=== PATIENT | female | born 1975 | race Two or more races ===

== ENCOUNTER → 2016-09-10 | Outpatient (CLI) | payer OTHER ==
[~2016-09-10] MED LIST: AMIT24CA PO; ATOR1TAB19 PO; CONC18TA14 PO; DETR4CAP PO; FLUO20CA8 PO; GABA300C2 PO; KEPP500T4 PO; LEVO88TA2 PO; LIPI10TA PO; LISI5TAB PO; MULT1TAB10 PO; PRIL40CA PO; PROZ20CA11 PO; TRAZ100T2 PO; VENL75CA PO; WELLTAB4 PO
--- NOTE | 2016-09-11 01:50 | ECWPNPC ---
PATIENT NAME: NADEEM GARDNER : 1975 GENDER: FEMALE VISIT DATE: 09/10/2016 DISCHARGE DATE: 09/10/16 1428 VISIT LOCKED DATE TIME: PHYSICIAN: ANIKET MALLORY RESOURCE: ANIKET MALLORY REASON FOR APPOINTMENT 1. NECK PAIN HISTORY OF PRESENT ILLNESS FALL RISK SCREENING: SCREENING :NO FALLS IN THE PAST YEAR 40 Y/O FEMALE REFERRED BY FOR CHRONIC NECK PAIN.PAIN BEGAN WITHOUT PRECIPITATING EVENT 2013.DESCRIBES PAIN CONSTANT ACHE BASE OF NECK.PAIN IS AGGREVATED WITH LEFT LATERAL ROTATION OF NECK.RELIEVED SOMEWHAT WITH HEAT AND TYLENOL.RATING PAIN VAS 3/10.DENIES BOWEL OR BLADDER INCONTINENCE.REPORTING WEEKLY WEIGHT LOSS OF 1/2 POUND LATELY.HAD GASTRIC BYPASS 2014.IT WILL BE 2 YEARS POST OP IN NOVEMBER 2016.DL ENCOURAGED HER TO DISCUSS THIS WITH PRIMARY CARE SOON POSSIBLE.DENIES BOWEL OR BLADDER INCONTINENCE. PAIN SCREENING: PATIENT HAS A COMPLAINT OF ACUTE OR CHRONIC PAIN YES CURRENT MEDICATIONS TAKING CONCERTA 18 MG TABLET EXTENDED RELEASE 1 TABLET IN THE MORNING ORALLY ONCE A DAY TAKING MULTI COMPLETE - CAPSULE 1 CAP CHEWABLW ORALLY DAILY TAKING ACETAMINOPHEN EXTRA STRENGTH 500 MG TABLET 1-2 TABLETS NEEDED ORALLY EVERY 6 HRS PRN TAKING IMITREX STATDOSE SYSTEM 4 MG/0.5ML SOLUTION AUTO-INJECTOR 0.5 ML NEEDED SUBCUTANEOUS TWICE A DAY MEDICATION LIST REVIEWED AND RECONCILED WITH THE PATIENT PAST MEDICAL HISTORY HYPERLIPIDEMIA-- RESOLVED SINCE GASTRIC BYPASS HYPERTENION--NO MEDS AT PRESENT NECK PAIN MIGRAINES SEIZURE X2 2012 AND 2013 ATTRIBUTED TO COMBINATION OF WELLBUTRIN AND TRAMADOL CHROINC LBP HYPOTHYROID--NO MEDS AT PRESENT ARTHRITIS ALLERGIES N.K.D.A. SURGICAL HISTORY GASTRIC BYPASS 11/2014 CARPAL TUNNEL REPAIR--BILAT 05/2012 BILAT. ULNA NERVE 12/2010 APPENDECTOMY 06/2010 UMBILICAL HERNIA REPAIR 08/2007 FAMILY HISTORY FATHER: ALIVE 78 YRS, DIAGNOSED WITH DIABETES, HYPERTENSION, HEART DISEASE, CANCER MOTHER: 69 YRS, DIAGNOSED WITH HYPERTENSION, OTHER 3 SON(S) , 1 DAUGHTER(S) - HEALTHY. DAD--SKIN CAMOM--PULMONARY EMBOLISM. SOCIAL HISTORY GENERAL: TOBACCO USE ARE YOU A:NONSMOKER ALCOHOL SCREENING POINTS1 INTERPRETATIONNEGATIVE RECREATIONAL DRUG USE DRUG USE?NO PATIENT DENIES ABUSE OR MISSUSED OF ANY MEDICATION. CAFFEINE CAFFEINE USE?YES HOW OFTEN AND HOW MUCH? 1-3 CUPS COFFEE/DAY OCCUPATION: RETIRED--DUE TO MEDICAL CONDITION. DIET: REGULAR. EXERCISE: NO REGULAR EXERCISE. MARITAL STATUS: . OTHERS AT HOME: SPOUSE, 4 CHILDREN. PETS: DOG AND CAT. DENOMINATIONAL: NO YAZIDISM BELIEFS THAT WOULD IMPACT HEALTH CARE. LANGUAGE: ROMANIAN. EDUCATION: [employer] ORIENTATION TO PAIN CENTER PLAN OF CARE REVIEWED WITH PATIENT AND SHE VERBALIIZED UNDERSTANDING. LEARNING BARRIERS / SPECIAL NEEDS BARRIERS TO LEARNING?NO HEARING IMPAIRED?NO VISION IMPAIRED?YES :CORRECTIVE LENSES COGNITIVELY IMPAIRED?NO READINESS TO LEARN?YES LEARNING PREFERENCES?YES :DEMONSTRATION/VERBAL INSTRUCTION EMOTIONAL BARRIERS?NO MEDICATION ABUSE NO PSYCHOLOGICAL HX TREATMENTYES HOW OFTEN AND HOW MUCH? ONCE A MONTH X 2 YRS. ENDED IN 2014 PAIN CLINIC PFS, CLERGY, PUBLIC HEALTH REFERRALS PFS REFERRAL NEEDED?NO CLERGY REFERRAL NEEDED?NO PUBLIC HEALTH REFERRAL NEEDED?NO ADVANCED DIRECTIVES HEALTH CARE PROXY?NO PACKET GIVEN POWER OF LOCAL DELIVERY DRIVER?NO RETIRED: DUE TO MEDICAL REASON. DOMESTIC VIOLENCE: NONE. HOSPITALIZATION/MAJOR DIAGNOSTIC PROCEDURE SEIZURES 2013 REVIEW OF SYSTEMS CONSTITUTIONAL: RECENT ILLNESS DENIES . ANY CHANGE IN YOUR MEDICAL CONDITION? NO . CHILLS NO . FEVER NO, DENIES . WEIGHT LOSS DENIES . INFECTION: DO YOU HAVE NEW INFECTIONS? NO . DO YOU HAVE HISTORY OF MRSA? NO . MUSCULOSKELETAL: ANY NEW PATTERNS OF PAIN OR NUMBNESS? NO . SYTEMIC LUPUS NO . JOINT PAIN DENIES . JOINT STIFFNESS DENIES . GASTROENTEROLOGY: BOWEL INCONTINENCE DENIES . ANY NEW CHANGE IN BOWEL CONTROL? NO . BARRETTS ESOPHAGUS NO . CIRRHOSIS NO . HEPATITIS NO . LIVER FAILURE NO . ACID REFLUX NO . BLOOD IN STOOL DENIES . UNEXPLAINED WEIGHT LOSS NO . GENITOURINARY: ANY NEW CHANGE IN BLADDER CONTROL? NO . IS THERE A CHANCE YOU COULD BE ? NO . HEMATOLOGY/LYMPH: DENIES . BLEEDING DISORDER DENIES . DO YOU TAKE ANY BLOOD THINNERS? (FOR EXAMPLE- COUMADIN, PLAVIX, AGGRENOX, PLATEL, PRADAXA, OR XARELTO) NO . WHEN WAS YOUR LAST DOSE? DATE: TIME: . LOW PLATELET COUNT NO . SICKLE CELL DISEASE NO . VON WILLIEBRANDS NO . FACTOR V LEIDEN NO . THALLASEMIA NO . ANEMIA NO . EASY BRUISING NO . NEUROLOGY: HAVE YOU FALLEN IN THE PAST 6 MONTHS? NO . ANY NEW EXTREMITY NUMBNESS OR WEAKNESS? NO . HEAD INJURY NO . DEMENTIA NO . CEREBRAL PALSY NO . MULTIPLE SCLEROSIS NO . DIZZINESS NO . HEADACHE MIGRAINES, INTERMITTENT HAS BEEN SEVERAL YEARS SINCE SHE HAS HAD ONE, DENIES . SEIZURES DENIES . STROKES NO . VERTIGO NO . CARDIOLOGY: DO YOU HAVE A PACEMAKER OR DEFIBRILLATOR? NO . ANGINA NO . HEART ATTACK NO . HEART SURGERY NO . CONGESTIVE HEART FAILURE/FLUID OVERLOAD NO . CHEST PAIN NO, DENIES . HIGH BLOOD PRESSURE NO MEDS . IRREGULAR HEART BEAT NO . SHORTNESS OF BREATH DENIES . RESPIRATORY: HAVE YOU BEEN SICK IN THE PAST WEEK? NO . FEVER NO . FLU LIKE SYMPTOMS? NO . CPAP NO . BYPAP NO . ASTHMA NO . EMPHYSEMA NO . CHRONIC LUNG DISEASES NO . SHORTNESS OF BREATH ON EXERTION NO . COUGH NO, DENIES . SHORTNESS OF BREATH DENIES . SNORING NO . INTEGUMENTARY: DO YOU HAVE ANY RASHES OR OPEN SORES? NO . ALLERGIC/IMMUNO: ARE YOU ALLERGIC TO SHELLFISH OR IV DYE? NO . ANY NEW ALLERGIES? NO . PSYCHIATRIC: DO YOU HAVE THOUGHTS OF HURTING YOURSELF OR SOMEONE ELSE? NO . ARE YOU ABUSED, NEGLECTED, OR IN AN UNSAFE ENVIRONMENT? NO . ENDOCRINOLOGY: THYROID DISEASE DENIES . ARE YOU DIABETIC? NO . DIABETES DENIES . THYROID DISORDER HYPOTHYROID, NO MEDS . OTHER: DO YOU NEED ANY PRESCRIPTIONS? NO . IF YES, PLEASE LIST: ____ . ANY NEW PROBLEMS WITH YOUR MEDICATIONS? NO . WHEN DID YOU LAST EAT? ____ . WHEN DID YOU LAST DRINK? ____ . WHAT DID YOU LAST DRINK? ____ . NAME OF PERSON DRIVING YOU HOME? ____ . DO YOU HAVE ANY OTHER QUESTIONS OR CONCERNS NO . HEENT: CHANGE IN VISION DENIES . LOSS OF HEARING DENIES . TROUBLE SWALLOWING DENIES . PSYCHOLOGY: ANXIETY DENIES . DEPRESSION DENIES . UROLOGY: URINARY INCONTINENCE DENIES . BLOOD IN URINE DENIES . REVIEWED BY: PROVIDER: ANIKET MARTINEZ . VITAL SIGNS WT 119 LBS, HT 61 IN, BMI 22.48 INDEX, BP 150/80 MM HG, HR 56 /MIN, RR 16 /MIN, TEMP 98 F, OXYGEN SAT % 98, REVIEWED BY: AD. EXAMINATION GENERAL EXAMINATION: HEENT:HEAD:, NORMOCEPHALIC, EYES:, EYES NORMAL, NOSE:, NOSE CLEAR, THROAT: NORMAL. LUNGS:LUNG SOUNDS ARE CLEAR. HEART:HEART RATE REGULAR. ABDOMEN:SOFT AND NOT TENDER, NON-DISTENDED. MUSCULOSKELETAL:*. LUMBAR SACRAL SPINEMUSCLE STRENGTH TESTING 5/5 BILATERAL, PALPATION: NEGATIVE FOR PAIN OVER L/S SPINE. NEGATIVE FOR PAIN OVER L/S PARSPINALS. THORACIC SPINENEGATIVE FOR PAIN WITH PALPATION OF THORACIC SPINE. NEGATIVE FOR PAIN WITH PALPATION OF THORACIC PARASPINAL. CERVICALNEGATIVE FOR PAIN WITH PALPATION OF CERVICAL SPINE. + FOR PAIN WITH PALPATION OF LEFT CERVICAL PARASPINAL.SPECIFIC TRIGGER POINT LEFT OCCIPITAL.PAIN IS AGGREVATED WITH LEFT GAZE/ROTATION OF NECK. . SKIN:NORMAL, NO RASH. NEUROLOGIC EXAM:ALERT AND ORIENTED X 3, DTRS 1-2+ IN ALL 4 EXTREMITIES, DENIES UPPER EXTREMETIES SENSORY LOSS, DENIES LOWER EXTREMETIES SENSORY LOSS. DIAGNOSTIC:[id number]-MINIMAL CERVICAL SPONDYLOSIS C4/5-C5/6. ASSESSMENTS MYOFASCIAL MUSCLE PAIN - M79.1 (PRIMARY) CERVICALGIA - M54.2 TREATMENT MYOFASCIAL MUSCLE PAIN TRIGGER POINT 1-2 AREAS NOTES: TRIGGER POINT INJECTION: YOUR EXPERIENCE MATERIAL WAS PRINTED,TRIGGER POINT INJECTION MATERIAL WAS PRINTED. REFERRAL TO:PHYSICAL THERAPY INNOVATIVEPHYSICAL THERAPIST REASON:LEFT CERVICAL/OCCIPITAL MYALGIA-MYOFASCIAL RELEASE-2X WK X 8 WEEKS PROCEDURE CODES FA211 ESTABILISHED PATIENT [facility] FACILITY CHARGE FOLLOW UP 2WK POST PROCEDURE (REASON: TPI LEFT CERVICAL /OCCIPITAL) ELECTRONICALLY SIGNED BY MICHELLE HAYES ON 09/10/2016 AT 02:30 PM EST DISCLAIMER : THIS IS A VISIT SUMMARY EXTRACTED FROM THE [employer] CHART. IT IS NOT A COPY OF THE [employer] PROGRESS NOTE. VIKTORIA
== END ==
LOC: M PAIN 13:20
PROVIDERS: ATTEND Nurse Practitioner Family
DX: Z09 Encounter for follow-up examination after completed treatment for conditions other than malignant neoplasm (principal); M79.1 Myalgia; M54.2 Cervicalgia; M54.5 Low back pain; G89.29 Other chronic pain; G43.909 Migraine, unspecified, not intractable, without status migrainosus; M19.90 Unspecified osteoarthritis, unspecified site; Z79.899 Other long term (current) drug therapy

== ENCOUNTER → 2016-09-11 | Outpatient (CLI) | payer OTHER ==
[~2016-09-11] MED LIST changes: +LIDOCAINE 1% SDV INJ 30 ML VIAL As Ordered ONE; +MIDAZOLAM INJ 2 MG/2 ML VIAL (J2250) As Ordered ONE; +fentaNYL 100 MCG/2 ML INJECTION (J3010) As Ordered ONE
[2016-09-11 17:24] LABS: GLUCOSE CSF 48 MG/DL (40-75)
[2016-09-11 17:28] LABS: RBC CSF AUTO 7 /mm3 (0-0); WBC CSF AUTO 0 /mm3 (0-10)
[2016-09-11 17:30] LABS: APPEARANCE, CSF CLEAR (CLEAR); COLOR, CSF COLORLESS (COLORLESS); CSF DIFF IF INDICATED? NO (NO); CSF TUBE# CELL CNT TUBE 3
[2016-09-11 17:31] LABS: CSF DILUENT LOT # 6109
[2016-09-12 08:20] LABS: CSF GROUP B STREP NEGATIVE (NEGATIVE); CSF H. INFLUENZA NEGATIVE (NEGATIVE); CSF N MENINGITIDIS ACYW135 NEGATIVE (NEGATIVE); CSF STREP PNUEMO NEGATIVE (NEGATIVE)
--- NOTE | 2016-09-15 23:21 | ECWPNPC ---
PATIENT NAME: NADEEM GARDNER : 1975 GENDER: FEMALE VISIT DATE: 09/11/2016 DISCHARGE DATE: 09/11/16 1724 VISIT LOCKED DATE TIME: PHYSICIAN: URSULA BELL RESOURCE: URSULA BELL REASON FOR APPOINTMENT 1. SPINAL TAP MS PROTOCOL CURRENT MEDICATIONS TAKING CONCERTA 18 MG TABLET EXTENDED RELEASE 1 TABLET IN THE MORNING ORALLY ONCE A DAY TAKING MULTI COMPLETE - CAPSULE 1 CAP CHEWABLW ORALLY DAILY TAKING ACETAMINOPHEN EXTRA STRENGTH 500 MG TABLET 1-2 TABLETS NEEDED ORALLY EVERY 6 HRS PRN TAKING IMITREX STATDOSE SYSTEM 4 MG/0.5ML SOLUTION AUTO-INJECTOR 0.5 ML NEEDED SUBCUTANEOUS TWICE A DAY PAST MEDICAL HISTORY HYPERLIPIDEMIA-- RESOLVED SINCE GASTRIC BYPASS HYPERTENION--NO MEDS AT PRESENT NECK PAIN MIGRAINES SEIZURE X2 2012 AND 2013 ATTRIBUTED TO COMBINATION OF WELLBUTRIN AND TRAMADOL CHROINC LBP HYPOTHYROID--NO MEDS AT PRESENT ARTHRITIS VITAL SIGNS WT 118 LBS, HT 61 IN, BMI 22.29 INDEX, BP 138/71 MM HG, HR 55 /MIN, RR 16 /MIN, TEMP 98.8 F, OXYGEN SAT % 100, NA INITIALS SC. ASSESSMENTS MS PROTOCOL. TREATMENT OTHERS NOTES: SPINAL TAP WITH IV SEDATION - PLEASE SEE [employer]. PROCEDURE CODES 33141 MOD SED SAME PHYS/QHP 5/>YRS 00602 MOD SED SAME PHYS/QHP EA DISPOSITION & COMMUNICATION FOLLOW UP F/UP WITH NEUROLOGIST/CALL NEEDED ELECTRONICALLY SIGNED BY URSULA BELL MD ON 09/15/2016 AT 08:58 PM EST DISCLAIMER : THIS IS A VISIT SUMMARY EXTRACTED FROM THE [employer] CHART. IT IS NOT A COPY OF THE [employer] PROGRESS NOTE. MTDD
== END ==
LOC: M PAIN 14:00
PROVIDERS: ATTEND Anesthesiology
DX: G89.29 Other chronic pain (principal); M54.2 Cervicalgia; I10 Essential (primary) hypertension; G43.909 Migraine, unspecified, not intractable, without status migrainosus; M79.1 Myalgia; M54.5 Low back pain; E03.9 Hypothyroidism, unspecified; M19.90 Unspecified osteoarthritis, unspecified site; Z79.899 Other long term (current) drug therapy; Z98.84 Bariatric surgery status
CPT/HCPCS: 36415; 62270; 82784; 82945; 83916; 84157; 87015; 87070; 87102; 87205; 87252; 87802; 87899; 88108; 88313; 89050; 99152; 99153; J2250; J3010

== ENCOUNTER 2017-03-24 12:09 | Emergency (ER) | payer OTHER ==
[~2017-03-24] VITALS: Ht 154.9 cm; Wt 56.8 kg
[~2017-03-24 12:09] MED LIST changes: -LIDOCAINE 1% SDV INJ 30 ML VIAL As Ordered ONE; -MIDAZOLAM INJ 2 MG/2 ML VIAL (J2250) As Ordered ONE; -fentaNYL 100 MCG/2 ML INJECTION (J3010) As Ordered ONE
[2017-03-24] MEDS ORDERED: ACET1TAB17 PO (12:21)
[2017-03-24 14:22] LABS: BASO % 0.5 % (0.0-1.0); EOS # 0.2 K/mm3 (0.0-0.50); EOS % 2.4 % (0.0-3.0); LARGE UNSTAINED CELL # 0.2 K/mm3 (0.0-0.4); LYMPH % 34.9 % (24.0-44.0); MEAN CORPUSCULAR HEMOGLOBIN 31.2 pg (27.0-33.0); MEAN CORPUSCULAR HGB CONC 33.8 g/dl (32.0-36.5); MEAN CORPUSCULAR VOLUME 92.3 fl (80.0-96.0); MONO # 0.5 K/mm3 (0.0-0.8); MONO % 6.5 % (0.0-5.0); NEUTROPHILS # 4.4 K/mm3 (1.8-7.7); NEUTROPHILS % 53.7 % (36.0-66.0); PLATELET COUNT, AUTOMATED 288 k/mm3 (150-450); RED CELL DISTRIBUTION WIDTH 12.9 % (11.5-14.5); WHITE BLOOD COUNT 8.1 K/mm3 (4.0-10.0)
[2017-03-24 14:51] LABS: ANION GAP 6 MEQ/L (8-16); BLOOD UREA NITROGEN 12 MG/DL (7-18); CALCIUM LEVEL 8.7 MG/DL (8.5-10.1); CARBON DIOXIDE LEVEL 29 MEQ/L (21-32); CHLORIDE LEVEL 107 MEQ/L (98-107); CREATININE FOR GFR 0.71 MG/DL (0.55-1.02); GLOMERULAR FILTRATION RATE > 60.0 (>58); GLUCOSE, FASTING 84 MG/DL (70-105); POTASSIUM SERUM 3.6 MEQ/L (3.5-5.1); SODIUM LEVEL 142 MEQ/L (136-145)
[2017-03-24] MEDS ORDERED: BACT800T5 PO (16:25)
[2017-03-24] MEDS ORDERED: NORCOTAB PO (16:26)
[2017-03-24 16:37] VITALS: BP 129/70
--- NOTE | 2017-03-25 08:01 | REP ---
CT abdomen pelvis WITHOUT CONTRAST: HISTORY: Left flank pain. COMPARISON: 07/07/2014. The patient is status post cholecystectomy and gastric bypass surgery. The liver, pancreas, adrenal glands and right kidney are normal in appearance. There is no nephrolithiasis. There is mild prominence of the left renal pelvis. The ureters are not seen in the lower abdomen and pelvis. The urinary bladder and uterus are normal in appearance. There is no definite ureteral calculus. There is no free fluid in the pelvis. IMPRESSION: 1. The patient is status post cholecystectomy and gastric bypass surgery. 2. There is no nephrolithiasis. There is mild prominence of the left renal pelvis, however, no definite ureteral calculus is seen. Signed by Tavo Burns MD 03/25/2017 08:19 A
== END 2017-03-24 16:39 | disposition home or self-care (01) ==
LOC: M ED 12:09
DX: N23 Unspecified renal colic (principal); N39.0 Urinary tract infection, site not specified; F90.9 Attention-deficit hyperactivity disorder, unspecified type; M19.90 Unspecified osteoarthritis, unspecified site; Z87.19 Personal history of other diseases of the digestive system; Z87.891 Personal history of nicotine dependence; Z98.84 Bariatric surgery status; Z79.899 Other long term (current) drug therapy

== ENCOUNTER 2017-09-24 12:49 | Day surgery (SDC) | payer OTHER ==
[2017-09-24] MEDS ORDERED: LR 1,000 ML IV (13:00)
[2017-09-24] MEDS ORDERED: LIDOCAINE W/EPINEPHRINE 1% 20ML VIAL As Ordered (15:14)
[2017-09-24] MEDS ORDERED: PROPOFOL 200 MG/20 ML VIAL As Ordered ×4 (15:20→16:04)
[2017-09-24] MEDS ORDERED: LIDOCAINE 2% INJ 100 MG/5 ML SDV (FOR ANES.) As Ordered (15:20)
== END 2017-09-24 17:10 | disposition home or self-care (01) ==
LOC: M OPP 12:49
DX: K62.5 Hemorrhage of anus and rectum (principal); K64.4 Residual hemorrhoidal skin tags; Q43.8 Other specified congenital malformations of intestine; E16.1 Other hypoglycemia; F41.9 Anxiety disorder, unspecified; F32.9 Major depressive disorder, single episode, unspecified; G43.909 Migraine, unspecified, not intractable, without status migrainosus; R56.9 Unspecified convulsions; Z98.84 Bariatric surgery status; Z79.899 Other long term (current) drug therapy; Z87.891 Personal history of nicotine dependence; Z80.0 Family history of malignant neoplasm of digestive organs
CPT/HCPCS: 45378

== ENCOUNTER → 2017-10-28 | Outpatient (CLI) | payer OTHER ==
[~2017-10-28] MED LIST changes: -AMIT24CA PO; -ATOR1TAB19 PO; -CONC18TA14 PO; -DETR4CAP PO; +E-Z-GAS II EFFERVESCENT PACKET (SODIUM BICARB./CITRIC ACID/SIMETHICONE) As Ordered; +E-Z-HD 98% w/w 340GM SUSP BTL As Ordered; +E-Z-PAQUE 96% w/w SUSP 176GM BTL As Ordered; -FLUO20CA8 PO; -GABA300C2 PO; -KEPP500T4 PO; -LEVO88TA2 PO; -LIPI10TA PO; -LISI5TAB PO; -MULT1TAB10 PO; -PRIL40CA PO; -PROZ20CA11 PO; -TRAZ100T2 PO; -VENL75CA PO; -WELLTAB4 PO
== END ==
LOC: M RAD 09:43
DX: R13.10 Dysphagia, unspecified (principal)
CPT/HCPCS: 74220

== ENCOUNTER 2017-12-06 11:16 | Emergency (ER) | payer OTHER ==
[2017-12-06] MEDS: METOCLOPRAMIDE INJ 10MG/2ML VIAL (J2765) IV (11:42)
[2017-12-06] MEDS: NS 1,000 ML IV (11:42)
[2017-12-06] MEDS: diphenhydrAMINE INJ 50MG/ML VIAL (J1200) IV (11:42)
[2017-12-06] MEDS: KETOROLAC 30 MG/ML VIAL (J1885) IV (12:38)
[2017-12-06 14:37] LABS: ANION GAP 5 MEQ/L (8-16); BLOOD UREA NITROGEN 10 MG/DL (7-18); CALCIUM LEVEL 8.5 MG/DL (8.5-10.1); CARBON DIOXIDE LEVEL 30 MEQ/L (21-32); CHLORIDE LEVEL 107 MEQ/L (98-107); CREATININE FOR GFR 0.68 MG/DL (0.55-1.30); GLOMERULAR FILTRATION RATE > 60.0 (>58); GLUCOSE, FASTING 96 MG/DL (70-100); POTASSIUM SERUM 3.8 MEQ/L (3.5-5.1); SODIUM LEVEL 142 MEQ/L (136-145)
== END 2017-12-06 15:12 | disposition home or self-care (01) ==
LOC: M ED 11:16
DX: G43.809 Other migraine, not intractable, without status migrainosus (principal); R56.9 Unspecified convulsions; I10 Essential (primary) hypertension; F32.9 Major depressive disorder, single episode, unspecified; E78.5 Hyperlipidemia, unspecified; Z79.899 Other long term (current) drug therapy
CPT/HCPCS: J1200

== ENCOUNTER → 2018-01-28 | Outpatient (CLI) | payer OTHER | LOC: M PLARAD 15:04 | DX: R91.1 Solitary pulmonary nodule (principal) | CPT/HCPCS: 78815 ==

== ENCOUNTER → 2018-02-25 | Outpatient (CLI) | payer OTHER ==
[~2018-02-25] MED LIST changes: -E-Z-GAS II EFFERVESCENT PACKET (SODIUM BICARB./CITRIC ACID/SIMETHICONE) As Ordered; -E-Z-HD 98% w/w 340GM SUSP BTL As Ordered; -E-Z-PAQUE 96% w/w SUSP 176GM BTL As Ordered; +METHACHOLINE KIT (J7674) INH
== END ==
LOC: M CARPUL 14:24
DX: R06.2 Wheezing (principal)
CPT/HCPCS: J7674

== ENCOUNTER → 2018-05-13 | Outpatient (CLI) | payer OTHER ==
[~2018-05-13] MED LIST changes: +CONRAY-43 43% 50ML VIAL (Q9960) As Ordered; +LIDOCAINE 1% MDV 20ML VIAL As Ordered; -METHACHOLINE KIT (J7674) INH; +TRIAMCINOLONE ACETONIDE SUSP 40 MG/ML VIAL (J3301) As Ordered
== END ==
LOC: M RADPRO 10:06
DX: M25.551 Pain in right hip (principal); M16.11 Unilateral primary osteoarthritis, right hip; I10 Essential (primary) hypertension; F41.9 Anxiety disorder, unspecified; F32.9 Major depressive disorder, single episode, unspecified; J45.909 Unspecified asthma, uncomplicated; Z79.899 Other long term (current) drug therapy; Z87.891 Personal history of nicotine dependence; Z98.84 Bariatric surgery status
CPT/HCPCS: 20610

== ENCOUNTER 2018-10-22 15:47 | Emergency (ER) | payer OTHER ==
[~2018-10-22] VITALS: Ht 165.1 cm; Wt 63.6 kg
[~2018-10-22 15:47] MED LIST changes: +ACET1TAB55 PO; +AMBI5TAB PO; +AMIT24CA PO; +ATOR1TAB19 PO; +BACT800T5 PO; +CALC12504 PO; +CONC18TA14 PO; -CONRAY-43 43% 50ML VIAL (Q9960) As Ordered; +DETR4CAP PO; +FLUO20CA8 PO; +GABA300C2 PO; +HYDR-3715 PO; +IRON65TA PO; +KEPP500T4 PO; +LEVO88TA2 PO; -LIDOCAINE 1% MDV 20ML VIAL As Ordered; +LIPI10TA PO; +LISI5TAB PO; +MULT1TAB10 PO; +OMEP20CA3; +PRIL40CA PO; +PROZ20CA11 PO; +TRAZ100T2 PO; -TRIAMCINOLONE ACETONIDE SUSP 40 MG/ML VIAL (J3301) As Ordered; +VENL75CA PO; +WELLTAB4 PO
--- NOTE | 2018-10-22 20:17 | REPVR ---
EXAM: MR Lumbar Spine Without Contrast. EXAM DATE/TIME: 10/22/2018 7:04 PM CLINICAL HISTORY: 43 years old, female; Pain; Lumbago with sciatica; Bilateral; Additional info: Back pain incontinence ? cauda equina TECHNIQUE: Imaging protocol: Multiplanar magnetic resonance images of the lumbar spine without intravenous contrast. COMPARISON: No relevant prior studies available. FINDINGS: Vertebrae: Levoconvex scoliosis. Mild disc desiccation demonstrated at L3-4 and L4-5. L1-L2: No significant disc disease. No stenosis. L2-L3: No significant disc disease. No stenosis. L3-L4: No significant disc disease. No stenosis. L4-L5: No significant disc disease. No stenosis. L5-S1: Mild facet joint arthropathy L5-S1. Otherwise unremarkable. Spinal cord: Normal signal. No cord compression. Soft tissues: Unremarkable. IMPRESSION: No acute findings. Visualized portions of the cauda equina appear unremarkable. Electronically signed by: Brendon Ibrahim On 10/22/2018 20:17:46 PM
[2018-10-22] MEDS ORDERED: oxyBUTYnin 5 MG TAB PO ONE (22:45)
[2018-10-22] MEDS ORDERED: OXYB5TAB PO (22:45)
[2018-10-22 23:12] VITALS: BP 121/68
== END 2018-10-22 23:14 | disposition home or self-care (01) ==
LOC: M ED 15:47 → EDBD 15:47 → M ED 23:14
DX: R32 Unspecified urinary incontinence (principal); I10 Essential (primary) hypertension; J45.909 Unspecified asthma, uncomplicated; E78.9 Disorder of lipoprotein metabolism, unspecified; E07.9 Disorder of thyroid, unspecified; F41.9 Anxiety disorder, unspecified; Z98.84 Bariatric surgery status; Z79.899 Other long term (current) drug therapy

== ENCOUNTER 2019-01-12 12:11 | Emergency (ER) | payer OTHER ==
[~2019-01-12] VITALS: Ht 149.9 cm; Wt 68.7 kg
[~2019-01-12 12:11] MED LIST changes: +OXYB5TAB PO
--- NOTE | 2019-01-12 13:37 | REP ---
Head CT without contrast: History: Altered mental status. Comparison study: Comparison brain CT study December 06, 2017. CT findings: Bone window settings demonstrate an intact bony calvarium. There is no evidence of skull fracture or incidental bony calvarial lesion. The visualized paranasal sinuses appear clear. No intraorbital abnormality is seen. On soft tissue window setting images; the lateral, third, and fourth ventricles are normal in size and position. Doss-white differentiation pattern is normal above and below the tentorium. There are is no evidence of intracranial hemorrhage. No mass, edema, infarction, or midline shift is seen. No extra-axial fluid collection is appreciated. Impression: Negative noncontrast head CT. Electronically Signed by Crow Grijalva MD 01/12/2019 01:28 P
--- NOTE | 2019-01-12 13:38 | REP ---
CT study of the cervical spine without contrast: History: Altered mental status. Technique: Helical scanning is acquired and overlapping 2 mm high resolution axial images were generated and reviewed at bone and soft tissue window settings. Coronal and sagittal multiplanar re-formations images are generated. CT findings: There is no evidence of cervical spine element fracture. No skull base fracture is seen. Cervical vertebral body heights are preserved. Alignment is normal. Facet joints are normally aligned bilaterally at each cervical level on multiplanar re-formations images. There is no evidence of intraspinal or paraspinal hematoma. No extra vertebral abnormality is seen. Impression: Negative CT study of the cervical spine without contrast. No fracture seen. Electronically Signed by Crow Grijalva MD 01/12/2019 01:30 P
[2019-01-12] MEDS ORDERED: ACETAMINOPHEN 325 MG TAB PO ONE (14:00)
[2019-01-12 14:05] LABS: BASO % 0.5 % (0.0-1.0); EOS # 0.1 10^3/uL (0.0-0.50); EOS % 0.6 % (0.0-3.0); HEMATOCRIT 42.5 % (36.0-47.0); HEMOGLOBIN 14.6 g/dl (12.0-15.5); LYMPH # 1.9 10^3/uL (1.5-4.5); LYMPH % 24.7 % (24.0-44.0); MEAN CORPUSCULAR HEMOGLOBIN 31.9 pg (27.0-33.0); MEAN CORPUSCULAR HGB CONC 34.4 g/dl (32.0-36.5); MONO # 0.7 10^3/uL (0.0-0.8); MONO % 9.1 % (0.0-5.0); NEUTROPHILS % 64.8 % (36.0-66.0); PLATELET COUNT, AUTOMATED 260 10^3/uL (150-450); RED BLOOD COUNT 4.57 10^6/uL (4.00-5.40); WHITE BLOOD COUNT 7.7 10^3/uL (4.0-10.0)
[2019-01-12 14:22] LABS: OSMOLALITY SERUM 290 MOSM/KG (275-295)
[2019-01-12 14:26] LABS: AMPHETAMINES LEVEL URINE NEGATIVE (NEGATIVE); BARBITURATES URINE NEGATIVE (NEGATIVE); BENZODIAZEPINES URINE NEGATIVE (NEGATIVE); CANNABINOIDS URINE NEGATIVE (NEGATIVE); COCAINE METABOLITE URINE NEGATIVE (NEGATIVE); METHADONE URINE NEGATIVE (NEGATIVE); OPIATES URINE NEGATIVE (NEGATIVE); PHENCYCLIDINE URINE NEGATIVE (NEGATIVE)
[2019-01-12 14:40] LABS: ACETAMINOPHEN LEVEL < 2.0 UG/ML (10.0-30.0); ALBUMIN 3.8 GM/DL (3.2-5.2); ALT/SGPT 26 U/L (12-78); BILIRUBIN,DIRECT 0.2 MG/DL (0.0-0.2); BILIRUBIN,TOTAL 0.5 MG/DL (0.2-1.0); BLOOD UREA NITROGEN 14 MG/DL (7-18); CALCIUM LEVEL 9.3 MG/DL (8.5-10.1); CARBON DIOXIDE LEVEL 26 MEQ/L (21-32); CHLORIDE LEVEL 107 MEQ/L (98-107); CK-MB VALUE MASS < 1.0 NG/ML (<3.6); CPK CREATINE PHOSPHOKINASE 76 U/L (26-192); CREATININE FOR GFR 0.81 MG/DL (0.55-1.30); ETHYL ALCOHOL (ETHANOL) < 0.003 % (0.000-0.010); GLOMERULAR FILTRATION RATE > 60.0 (>58); GLUCOSE, FASTING 102 MG/DL (70-100); MB/CK RELATIVE INDEX 1.32 (< OR =4); POTASSIUM SERUM 3.9 MEQ/L (3.5-5.1); SODIUM LEVEL 139 MEQ/L (136-145); TOTAL PROTEIN 7.1 GM/DL (6.4-8.2); TROPONIN I < 0.02 NG/ML (< 0.10)
[2019-01-12 16:04] VITALS: BP 157/66
--- NOTE | 2019-01-13 05:54 | ECGEPIP ---
[facility] - ED Test Date: 2019-01-12 Pat Name: NADEEM GARDNER Department: Room: - Gender: Female Lead Pourer: rosa : 1975 Requested By: BARTOLO MARTINEZ Order Number: [id number] Reading MD: Dillon Simpson Measurements Intervals [place] Rate: 70 P: 38 MN: 142 QRS: 4 QRSD: 78 T: 16 QT: 411 QTc: 444 Interpretive Statements SINUS RHYTHM LOW QRS VOLTAGE IN PRECORDIAL LEADS NO PRIORS FOR COMPARISON Electronically Signed on 01-13-2019 5:54:11 EDT by Dillon Simpson
== END 2019-01-12 19:14 | disposition home or self-care (01) ==
LOC: M ED 12:11 → EDBD 12:11 → EDSEX 12:11 → M ED 19:14
DX: G40.409 Other generalized epilepsy and epileptic syndromes, not intractable, without status epilepticus (principal); F41.9 Anxiety disorder, unspecified; F33.9 Major depressive disorder, recurrent, unspecified; K21.9 Gastro-esophageal reflux disease without esophagitis; Z98.84 Bariatric surgery status; Z79.899 Other long term (current) drug therapy
CPT/HCPCS: 36415; 70450; 72125; 80048; 80076; 80307; 82550; 82553; 83605; 83930; 84443; 84484; 85025; 93005; 93041; 94760; 99285; G0480

== ENCOUNTER 2019-08-24 09:46 | Emergency (ER) | payer OTHER ==
[~2019-08-24] VITALS: Ht 165.1 cm; Wt 75.0 kg
[~2019-08-24 09:46] MED LIST changes: -CALC12504 PO; +CALC500T61 PO; +OMEP1CAP73; -OMEP20CA3; +OXYB-54 PO; -OXYB5TAB PO
[2019-08-24] MEDS ORDERED: TIZA2TA (09:55)
[2019-08-24] MEDS ORDERED: GABA600T4 (09:55)
--- NOTE | 2019-08-24 11:32 | REP ---
CT BRAIN WITHOUT CONTRAST: CT brain performed without IV contrast. Ventricles are normal in size and position. There is no midline shift or mass effect. Doss/white differentiation is well maintained. There is no evidence of acute intracranial hemorrhage or extra-axial fluid collection. No skull fracture or seen. IMPRESSION: Negative noncontrast CT brain. Electronically Signed by Brock Doss MD 08/26/2019 11:40 A
[2019-08-24] MEDS ORDERED: REGL10TA6 PO (11:43)
[2019-08-24 11:50] VITALS: BP 141/75
== END 2019-08-24 11:51 | disposition home or self-care (01) ==
LOC: M ED 09:46
DX: S09.90XA Unspecified injury of head, initial encounter (principal); W22.8XXA Striking against or struck by other objects, initial encounter; Y92.018 Other place in single-family (private) house as the place of occurrence of the external cause; I10 Essential (primary) hypertension; M79.7 Fibromyalgia; Z79.899 Other long term (current) drug therapy

== ENCOUNTER 2020-01-05 08:49 | Day surgery (SDC) | payer OTHER ==
[~2020-01-05] VITALS: Ht 154.9 cm; Wt 78.4 kg
[~2020-01-05 08:49] MED LIST changes: +ACETAMINOPHEN 650 MG SUPP PR ONE; +ADVA115A INH; +ALL10TAB29 PO; +AMBI6.25 PO; +DULO1CAP5 PO; +GABA600T4 PO; +LAMO200T3 PO; +LIDO5OIN19; +LIDOCAINE 1% MDV 20ML VIAL SQ PRN; +LISI-542 PO; +LR 1,000 ML IV ONE; +MULT-90 PO; -OMEP1CAP73; +OMEP1CAP73 PO; +PROAAER10 INH; +REGL10TA6 PO; +TIZA2TA PO; +TIZA4CAP PO; +VOLT1GEL15
[2020-01-05 09:24] LABS: HEMATOCRIT 45.1 % (36.0-47.0); HEMOGLOBIN 14.4 g/dl (12.0-15.5); MEAN CORPUSCULAR HEMOGLOBIN 29.4 pg (27.0-33.0); MEAN CORPUSCULAR HGB CONC 31.9 g/dl (32.0-36.5); MEAN CORPUSCULAR VOLUME 92.2 fl (80.0-96.0); PLATELET COUNT, AUTOMATED 350 10^3/uL (150-450); RED BLOOD COUNT 4.89 10^6/uL (4.00-5.40); WHITE BLOOD COUNT 6.7 10^3/uL (4.0-10.0)
[2020-01-05 09:49] LABS: BLOOD UREA NITROGEN 13 MG/DL (7-18); CARBON DIOXIDE LEVEL 29 MEQ/L (21-32); CHLORIDE LEVEL 106 MEQ/L (98-107); CREATININE FOR GFR 0.85 MG/DL (0.55-1.30); GLOMERULAR FILTRATION RATE > 60.0 (>58); GLUCOSE, FASTING 89 MG/DL (70-100); HCG, SERUM QUANTITATIVE 2 MIU/ML; POTASSIUM SERUM 4.3 MEQ/L (3.5-5.1); SODIUM LEVEL 141 MEQ/L (136-145)
[2020-01-05] MEDS ORDERED: LIDOCAINE 2% 100MG/5ML SDV (FOR ANES.) As Ordered ONE (10:33)
[2020-01-05] MEDS ORDERED: MIDAZOLAM INJ 2MG/2ML VIAL (J2250 PER 1MG) As Ordered ONE (10:33)
[2020-01-05] MEDS ORDERED: propofoL 200 MG/20 ML VIAL As Ordered ONE (10:33)
[2020-01-05] MEDS ORDERED: ONDANSETRON 4MG/2ML VIAL As Ordered ONE ×2 (10:33→12:05)
[2020-01-05] MEDS ORDERED: METOCLOPRAMIDE INJ 10MG/2ML VIAL (J2765 PER 1) As Ordered ONE (10:33)
[2020-01-05] MEDS ORDERED: fentaNYL 100 MCG/2 ML INJECTION (J3010) As Ordered ONE ×3 (10:33→12:08)
[2020-01-05] MEDS ORDERED: KETOROLAC 60 MG/2 ML VIAL As Ordered ONE (10:51)
[2020-01-05] MEDS ORDERED: ACETAMINOPHEN 650 MG SUPP As Ordered ONE (10:52)
[2020-01-05] MEDS ORDERED: KETOROLAC 30 MG/ML 1ML VIAL As Ordered ONE (12:06)
[2020-01-05] MEDS ORDERED: PERCOCET 5MG/325MG TAB As Ordered ONE (12:06)
[2020-01-05] MEDS: fentaNYL 100 MCG/2 ML INJECTION (J3010) IV PRN ×4 (12:10→12:25)
[2020-01-05] MEDS: PERCOCET 5MG/325MG TAB PO PRN ×2 (12:11→12:52)
[2020-01-05] MEDS ORDERED: ONDANSETRON 4MG/2ML VIAL IV PRN (12:15)
[2020-01-05] MEDS ORDERED: KETOROLAC 30 MG/ML 1ML VIAL IV PRN (12:15)
[2020-01-05] MEDS ORDERED: METOCLOPRAMIDE INJ 10MG/2ML VIAL (J2765 PER 1) IV PRN (12:15)
[2020-01-05] MEDS ORDERED: LR 1,000 ML IV SCH (12:15)
[2020-01-05 13:48] VITALS: BP 168/84
[2020-01-05] MEDS ORDERED: KETOROLAC 30 MG/ML 1ML VIAL IV SCH (18:00)
== END 2020-01-05 14:00 | disposition home or self-care (01) ==
LOC: M SDC 08:49
PROVIDERS: ATTEND Obstetrics & Gynecology
DX: N92.0 Excessive and frequent menstruation with regular cycle (principal); N84.1 Polyp of cervix uteri; I10 Essential (primary) hypertension; E03.9 Hypothyroidism, unspecified; K21.9 Gastro-esophageal reflux disease without esophagitis; M79.7 Fibromyalgia; F41.9 Anxiety disorder, unspecified; F32.9 Major depressive disorder, single episode, unspecified; Z79.899 Other long term (current) drug therapy
CPT/HCPCS: 36415; 58563; 80048; 84702; 85027; 88305; J1885; J2250; J2405; J2765

== ENCOUNTER → 2020-04-26 | Outpatient (CLI) | payer OTHER ==
[~2020-04-26] MED LIST changes: -ACETAMINOPHEN 650 MG SUPP PR ONE; -ALL10TAB29 PO; +CETI-24 PO; +GASTROGRAFIN SOLUTION 30ML (Q9963) As Ordered ONE; +ISOVUE-370 76% 100ML VIAL As Ordered ONE; -LIDOCAINE 1% MDV 20ML VIAL SQ PRN; -LR 1,000 ML IV ONE
--- NOTE | 2020-05-03 14:24 | REP ---
CT ABDOMEN AND PELVIS WITH INTRAVENOUS (IV) AND ORAL CONTRAST HISTORY: Abdomen and pelvic pain. Intermittent chronic lower abdominal pain x2 years suprapubic region. Occasional nausea and vomiting. CT CONTRAST DOSE: 100 mL of intravenous Isovue-[address] FINDINGS: Digital preliminary appeals examiner radiograph shows clips in the right upper quadrant. Bowel gas pattern is unremarkable with moderate stool in the proximal colon. On axial CT images, the lung bases are clear. There is evidence of mild fatty infiltration of the liver. Granulomatous calcifications are scattered about the liver parenchymal peripherally in a capsular/subcapsular distribution. No splenic granulomatous calcifications are seen. The patient is status post gastric bypass and cholecystectomy. No abnormalities noted in the pancreas. Normal adrenal glands are observed bilaterally. The kidneys enhance symmetrically and are morphologically intact. Neither the liver or the spleen is enlarged. Normal caliber aorta. No retroperitoneal mass or adenopathy is observed. There is no evidence of free intraperitoneal air or free fluid. Uterus is unremarkable. No ovarian abnormality is seen. Urinary bladder is intact. Small and large bowel loops are unremarkable on axial CT images in the abdomen and pelvis. No mesenteric mass or adenopathy is seen. No abdominal wall defect is appreciated. There is a linear postoperative calcification along the anterior surface of the right rectus abdominis muscle just below the cholecystectomy clips, likely related to prior cholecystectomy. No bony destructive lesion is seen. IMPRESSION: Postoperative changes including cholecystectomy and gastric bypass procedure. No acute intraabdominal abnormality. The appendix is surgically absent as well. DD: JONATHOND
== END ==
LOC: M RAD 13:24
PROVIDERS: ATTEND Family Medicine
DX: R10.2 Pelvic and perineal pain (principal); Z90.49 Acquired absence of other specified parts of digestive tract; Z98.84 Bariatric surgery status; Z90.89 Acquired absence of other organs
CPT/HCPCS: 74177; Q9963; Q9967

== ENCOUNTER 2020-07-05 11:10 | Emergency (ER) | payer OTHER, SELFPAY ==
[~2020-07-05] VITALS: Ht 154.9 cm; Wt 76.4 kg
[~2020-07-05 11:10] MED LIST changes: -GASTROGRAFIN SOLUTION 30ML (Q9963) As Ordered ONE; -ISOVUE-370 76% 100ML VIAL As Ordered ONE
[2020-07-05] MEDS ORDERED: TELM1TAB37 PO (11:44)
[2020-07-05] MEDS ORDERED: AMLO2.5T3 PO (11:44)
[2020-07-05] MEDS ORDERED: DOCU-129 PO (11:47)
[2020-07-05] MEDS ORDERED: MAGN1CAP PO (11:47)
[2020-07-05] MEDS ORDERED: B-12100010 PO (11:47)
[2020-07-05] MEDS ORDERED: PRED10TA2 PO (11:49)
[2020-07-05] MEDS ORDERED: ZYRTTAB8 PO (11:51)
[2020-07-05] MEDS ORDERED: NS 1,000 ML IV ONE (12:15)
[2020-07-05] MEDS ORDERED: METHOCARBAMOL 1,000 MG/10 ML VIAL (J2800) IV ONE (12:15)
[2020-07-05 13:28] LABS: BASO % 0.1 % (0.0-1.0); HEMATOCRIT 40.1 % (36.0-47.0); HEMOGLOBIN 12.7 g/dl (12.0-15.5); LYMPH # 0.9 10^3/uL (1.5-5.0); LYMPH % 8.5 % (24.0-44.0); MEAN CORPUSCULAR HEMOGLOBIN 27.7 pg (27.0-33.0); MEAN CORPUSCULAR HGB CONC 31.7 g/dl (32.0-36.5); MEAN CORPUSCULAR VOLUME 87.4 fl (80.0-96.0); MONO # 0.2 10^3/uL (0.0-0.8); MONO % 1.4 % (0.0-5.0); NEUTROPHILS # 9.6 10^3/uL (1.5-8.5); NEUTROPHILS % 89.4 % (36.0-66.0); PLATELET COUNT, AUTOMATED 373 10^3/uL (150-450); RED BLOOD COUNT 4.59 10^6/uL (4.00-5.40); WHITE BLOOD COUNT 10.7 10^3/uL (4.0-10.0)
[2020-07-05 13:41] LABS: INR 1.03; PROTHROMBIN TIME 13.7 SECONDS (12.5-14.3)
[2020-07-05 13:42] LABS: PARTIAL THROMBOPLASTIN TIME 24.7 SECONDS (24.2-38.5)
[2020-07-05 13:44] LABS: D-DIMER QUANT 381.3 ng/ml (<500)
[2020-07-05 13:50] LABS: HCG, SERUM QUALITATIVE NEGATIVE (NEGATIVE)
[2020-07-05 14:00] LABS: ALBUMIN 3.8 GM/DL (3.2-5.2); ALT/SGPT 22 U/L (12-78); BILIRUBIN,DIRECT 0.1 MG/DL (0.0-0.2); BILIRUBIN,TOTAL 0.4 MG/DL (0.2-1.0); BLOOD UREA NITROGEN 10 MG/DL (7-18); CALCIUM LEVEL 9.2 MG/DL (8.5-10.1); CARBON DIOXIDE LEVEL 26 MEQ/L (21-32); CHLORIDE LEVEL 107 MEQ/L (98-107); CK-MB VALUE MASS < 1.0 NG/ML (<3.6); CPK CREATINE PHOSPHOKINASE 59 U/L (26-192); CREATININE FOR GFR 0.86 MG/DL (0.55-1.30); FREE T4 0.94 NG/DL (0.76-1.46); GLOMERULAR FILTRATION RATE > 60.0 (>58); GLUCOSE, FASTING 136 MG/DL (70-100); MAGNESIUM LEVEL 2.3 MG/DL (1.8-2.4); MB/CK RELATIVE INDEX 1.69 (< OR =4); POTASSIUM SERUM 4.2 MEQ/L (3.5-5.1); SODIUM LEVEL 138 MEQ/L (136-145); TOTAL PROTEIN 7.2 GM/DL (6.4-8.2); TROPONIN I < 0.02 NG/ML (< 0.10)
[2020-07-05 14:06] LABS: ERYTHROCYTE SEDIMENTATION RATE 13 mm/hr (0-20)
[2020-07-05] MEDS ORDERED: KETOROLAC 30 MG/ML 1ML VIAL IV ONE (14:15)
[2020-07-05 14:27] VITALS: BP 123/69
--- NOTE | 2020-07-05 15:05 | REP ---
INDICATION: Syncope. COMPARISON: Comparison study August 24, 2019.. TECHNIQUE: Helical scanning is acquired. 5 mm axial images were reformatted. Coronal MPR images were generated. FINDINGS: Bone window settings demonstrate an intact bony calvarium. There is no evidence of skull fracture or incidental bony calvarial lesion. The visualized paranasal sinuses appear clear. No intraorbital abnormality is seen. On soft tissue window setting images; the lateral, third, and fourth ventricles are normal in size and position. Doss-white differentiation pattern is normal above and below the tentorium. There are is no evidence of intracranial hemorrhage. No mass, edema, infarction, or midline shift is seen. No extra-axial fluid collection is appreciated. There are minimal small vessel changes. IMPRESSION: Minimal small vessel changes. No acute intracranial abnormality.. <Electronically signed by Josse Grijalva > 07/05/20 [id number]
--- NOTE | 2020-07-05 15:07 | REP ---
INDICATION: Syncope. COMPARISON: Comparison study January 12, 2019.. TECHNIQUE: Helical scanning is acquired and overlapping 2 mm high resolution axial images were generated and reviewed at bone and soft tissue window settings. Coronal and sagittal multiplanar re-formations images are generated. FINDINGS: There is no evidence of cervical spine element fracture. No skull base fracture is seen. Cervical vertebral body heights are preserved. Alignment is normal. Facet joints are normally aligned bilaterally at each cervical level on multiplanar re-formations images. There is no evidence of intraspinal or paraspinal hematoma. No extra vertebral abnormality is seen. There is some straightening. On the coronal multiplanar reformations images there is dextroconvex curvature in the lower cervical spine which may be positional. IMPRESSION: Dextroconvex curvature in the lower cervical spine and straightening. Otherwise negative. No traumatic abnormality noted. Minimal degenerative disc changes.. <Electronically signed by Josse Grijalva > 07/05/20 [id number]
[2020-07-05] MEDS ORDERED: BACL10TA2 PO (15:25)
[2020-07-09] MEDS ORDERED: OXYB-54 PO (21:44)
[2020-07-09] MEDS ORDERED: TRUL3TAB PO (22:27)
[2020-07-09] MEDS ORDERED: CONC54TA4 PO (22:27)
[2020-07-09] MEDS ORDERED: SPIR-10 PO (22:27)
[2020-07-09] MEDS ORDERED: BISO5TAB14 PO (22:27)
[2020-07-09] MEDS ORDERED: ADVA230A INH (22:27)
[2020-07-09] MEDS ORDERED: ESSE250T PO (22:27)
[2020-07-09] MEDS ORDERED: DULO20CA27 PO (22:27)
== END 2020-07-05 15:56 | disposition home or self-care (01) ==
LOC: M ED 11:10 → EDBD 11:10 → M ED 15:56
DX: M62.838 Other muscle spasm (principal); M50.30 Other cervical disc degeneration, unspecified cervical region; I10 Essential (primary) hypertension; E78.5 Hyperlipidemia, unspecified; F41.9 Anxiety disorder, unspecified; F32.9 Major depressive disorder, single episode, unspecified; M54.9 Dorsalgia, unspecified; R56.9 Unspecified convulsions; J45.909 Unspecified asthma, uncomplicated; K21.9 Gastro-esophageal reflux disease without esophagitis; E03.9 Hypothyroidism, unspecified; Z87.891 Personal history of nicotine dependence; Z79.899 Other long term (current) drug therapy; Z79.51 Long term (current) use of inhaled steroids
CPT/HCPCS: 70450; 72125; 80048; 80076; 82550; 82553; 83735; 84439; 84443; 84484; 84703; 85025; 85379; 85610; 85652; 85730; 86140; 96374; 96375; 99284; J1885; J2800

== ENCOUNTER 2020-08-05 12:01 | Day surgery (SDC) | payer OTHER ==
[~2020-08-05] VITALS: Ht 154.9 cm; Wt 80.3 kg
[~2020-08-05 12:01] MED LIST changes: +ADVA230A INH; +AMLO2.5T3 PO; +B-12100010 PO; +BACL10TA2 PO; +BISO5TAB14 PO; +CONC54TA4 PO; +DOCU-129 PO; +DULO20CA27 PO; +ESSE250T PO; +GABA-843 PO; +MAGN1CAP PO; +NS 1,000 ML IV ONE; +PRED10TA2 PO; +SPIR-10 PO; +TELM1TAB37 PO; +TRUL3TAB PO; +ZYRTTAB8 PO
[2020-08-05] MEDS ORDERED: LIDOCAINE 2% 100MG/5ML SDV (FOR ANES.) As Ordered ONE (13:21)
[2020-08-05] MEDS ORDERED: propofoL 200 MG/20 ML VIAL As Ordered ONE (13:21)
[2020-08-05] MEDS ORDERED: fentaNYL 100 MCG/2 ML INJECTION (J3010) As Ordered ONE (13:21)
--- NOTE | 2020-08-05 14:42 | ROOR ---
Patient Name: Mi Gibson Procedure Date: 08/05/2020 2:27 PM Date of : 1975 Age: 44 Room: [facility] Gender: Female Note Status: Finalized Procedure: Upper GI endoscopy Indications: Epigastric abdominal pain, Nausea Providers: Manjit WATSON MD Referring MD: ROHAN MADRIGAL MD Requesting Provider: Medicines: Monitored Anesthesia Care Complications: No immediate complications. Procedure: Pre-Anesthesia Assessment: - The heart rate, respiratory rate, oxygen saturations, blood pressure, adequacy of pulmonary ventilation, and response to care were monitored throughout the procedure. The Endoscope was introduced through the mouth, and advanced to the jejunum. The upper GI endoscopy was accomplished without difficulty. The patient tolerated the procedure well. Findings: The examined esophagus was normal. Evidence of a Ayana-en-Y gastrojejunostomy was found. The gastrojejunal anastomosis was characterized by healthy appearing mucosa. The exam of the stomach was otherwise normal. The examined jejunum was normal. Impression: - Normal esophagus. - Ayana-en-Y gastrojejunostomy with gastrojejunal anastomosis characterized by healthy appearing mucosa. - Normal examined jejunum. - No specimens collected. Recommendation: - Observe patient's clinical course. - Continue present medications. Procedure Code(s): --- Professional --- 53488, Esophagogastroduodenoscopy, flexible, transoral; diagnostic, including collection of specimen(s) by brushing or washing, when performed (separate procedure) Diagnosis Code(s): --- Professional --- Z98.0, Intestinal bypass and anastomosis status R10.13, Epigastric pain R11.0, Nausea CPT copyright 2019 [employer]. All rights reserved. The codes documented in this report are preliminary and upon remote coders review may be revised to meet current compliance requirements. Manjit Watson MD Manjit WATSON MD 08/05/2020 2:42:16 PM Electronically signed by Manjit WATSON MD Number of Addenda: 0 Note Initiated On: 08/05/2020 2:27 PM Estimated Blood Loss: Estimated blood loss: none.
--- NOTE | 2020-08-05 15:03 | ROOR ---
Patient Name: Mi Gibson Procedure Date: 08/05/2020 2:28 PM Date of : 1975 Age: 44 Room: [facility] Gender: Female Note Status: Finalized Procedure: Colonoscopy Indications: Irritable bowel syndrome with constipation Providers: Manjit WATSON MD Referring MD: ROHAN MADRIGAL MD Requesting Provider: Medicines: Monitored Anesthesia Care Complications: No immediate complications. Procedure: Pre-Anesthesia Assessment: - The heart rate, respiratory rate, oxygen saturations, blood pressure, adequacy of pulmonary ventilation, and response to care were monitored throughout the procedure. The Colonoscope was introduced through the anus and advanced to the terminal ileum, with identification of the appendiceal orifice and IC valve. The colonoscopy was performed without difficulty. The patient tolerated the procedure well. The quality of the bowel preparation was good. Findings: The perianal and digital rectal examinations were normal. A 5 mm polyp was found in the proximal ascending colon. The polyp was sessile. The polyp was removed with a cold snare. Resection and retrieval were complete. Small Internal Hemorrhoids. The exam was otherwise without abnormality on direct and retroflexion views. Impression: - One 5 mm polyp in the proximal ascending colon, removed with a cold snare. Resected and retrieved. - Small Internal Hemorrhoids. - The examination was otherwise normal on direct and retroflexion views. Recommendation: - Repeat colonoscopy in 5 years for surveillance. Procedure Code(s): --- Professional --- 94109, Colonoscopy, flexible; with removal of tumor(s), polyp(s), or other lesion(s) by snare technique Diagnosis Code(s): --- Professional --- K58.1, Irritable bowel syndrome with constipation K63.5, Polyp of colon CPT copyright 2019 [employer]. All rights reserved. The codes documented in this report are preliminary and upon board winder review may be revised to meet current compliance requirements. Manjit Watson MD Manjit WATSON MD 08/05/2020 3:03:35 PM Electronically signed by Manjit WATSON MD Number of Addenda: 0 Note Initiated On: 08/05/2020 2:28 PM Estimated Blood Loss: Estimated blood loss: none.
[2020-08-05 15:30] VITALS: BP 115/68
== END 2020-08-05 15:33 | disposition home or self-care (01) ==
LOC: M OPP 12:01
PROVIDERS: ATTEND Internal Medicine Gastroenterology
DX: K58.1 Irritable bowel syndrome with constipation (principal); R10.13 Epigastric pain; R11.0 Nausea; D12.2 Benign neoplasm of ascending colon; K64.8 Other hemorrhoids; Z98.0 Intestinal bypass and anastomosis status; I10 Essential (primary) hypertension; E16.2 Hypoglycemia, unspecified; M19.90 Unspecified osteoarthritis, unspecified site; M79.7 Fibromyalgia; I73.00 Raynaud's syndrome without gangrene; F41.9 Anxiety disorder, unspecified; F32.9 Major depressive disorder, single episode, unspecified; G43.909 Migraine, unspecified, not intractable, without status migrainosus; F98.8 Other specified behavioral and emotional disorders with onset usually occurring in childhood and adolescence; J45.909 Unspecified asthma, uncomplicated; Z98.84 Bariatric surgery status; Z79.899 Other long term (current) drug therapy; Z82.49 Family history of ischemic heart disease and other diseases of the circulatory system; Z83.3 Family history of diabetes mellitus
CPT/HCPCS: 43235; 45385; 88305; J3010

== ENCOUNTER 2020-11-08 18:07 | Emergency (ER) | payer OTHER ==
[~2020-11-08] VITALS: Ht 154.9 cm; Wt 86.4 kg
[~2020-11-08 18:07] MED LIST changes: -DOCU-129 PO; +DOCU-153 PO; +GABA-282 PO; -GABA-843 PO; -LISI-542 PO; +LISI-898 PO; -NS 1,000 ML IV ONE; +PLEC3TAB PO; -TRUL3TAB PO
[2020-11-08] MEDS ORDERED: DEXTROSE 50% 50 ML SYRINGE As Ordered ONE (18:13)
[2020-11-08] MEDS ORDERED: DEXTROSE 50% 50 ML SYRINGE IV STA (18:20)
[2020-11-08] MEDS ORDERED: GLUC4GMTAB (18:23)
[2020-11-08 20:09] LABS: BASO # 0.1 10^3/uL (0.0-0.2); BASO % 0.5 % (0.0-1.0); EOS # 0.1 10^3/uL (0.0-0.5); EOS % 0.9 % (0.0-3.0); HEMOGLOBIN 11.9 g/dl (12.0-15.5); LYMPH # 2.5 10^3/uL (1.5-5.0); LYMPH % 25.4 % (24.0-44.0); MEAN CORPUSCULAR HEMOGLOBIN 27.9 pg (27.0-33.0); MEAN CORPUSCULAR HGB CONC 31.3 g/dl (32.0-36.5); MEAN CORPUSCULAR VOLUME 89.2 fl (80.0-96.0); MONO # 1.1 10^3/uL (0.0-0.8); MONO % 10.7 % (2.0-8.0); NEUTROPHILS # 6.2 10^3/uL (1.5-8.5); NEUTROPHILS % 61.9 % (36.0-66.0); PLATELET COUNT, AUTOMATED 365 10^3/uL (150-450); RED BLOOD COUNT 4.26 10^6/uL (4.00-5.40)
[2020-11-08 20:29] LABS: BLOOD UREA NITROGEN 12 MG/DL (7-18); CREATININE FOR GFR 0.85 MG/DL (0.55-1.30); GLOMERULAR FILTRATION RATE > 60.0 (>58); GLUCOSE, FASTING 114 MG/DL (70-100); SODIUM LEVEL 139 MEQ/L (136-145)
[2020-11-08 20:30] LABS: ALBUMIN 3.5 GM/DL (3.2-5.2); ALT/SGPT 19 U/L (12-78); BILIRUBIN,TOTAL 0.2 MG/DL (0.2-1.0); CALCIUM LEVEL 8.7 MG/DL (8.5-10.1); CARBON DIOXIDE LEVEL 29 MEQ/L (21-32); CHLORIDE LEVEL 104 MEQ/L (98-107); LIPASE 126 U/L (73-393); POTASSIUM SERUM 4.1 MEQ/L (3.5-5.1); TOTAL PROTEIN 6.4 GM/DL (6.4-8.2)
[2020-11-08 21:15] VITALS: BP 109/58
== END 2020-11-08 21:42 | disposition home or self-care (01) ==
LOC: M ED 18:07
DX: E11.649 Type 2 diabetes mellitus with hypoglycemia without coma (principal); I10 Essential (primary) hypertension; J45.909 Unspecified asthma, uncomplicated; G40.909 Epilepsy, unspecified, not intractable, without status epilepticus; K58.9 Irritable bowel syndrome, unspecified; G43.909 Migraine, unspecified, not intractable, without status migrainosus; Z98.84 Bariatric surgery status; Z79.84 Long term (current) use of oral hypoglycemic drugs; Z79.899 Other long term (current) drug therapy

== ENCOUNTER → 2021-11-09 | Outpatient (CLI) | payer OTHER ==
[~2021-11-09] MED LIST changes: +GLUC4GMTAB; -LISI-898 PO; +LISI5TAB11 PO
== END ==
LOC: M WHC 07:04
PROVIDERS: ATTEND Nurse Practitioner Primary Care
DX: Z12.31 Encounter for screening mammogram for malignant neoplasm of breast (principal)

== ENCOUNTER → 2021-11-23 | Outpatient (CLI) | payer OTHER | LOC: M WHC 12:50 | PROVIDERS: ATTEND Nurse Practitioner Primary Care | DX: Z12.31 Encounter for screening mammogram for malignant neoplasm of breast (principal) ==

== ENCOUNTER → 2022-09-13 | Outpatient (CLI) | payer OTHER ==
[~2022-09-13] MED LIST changes: +ISOVUE-300 61% 100ML VIAL As Ordered ONE; +LIDOCAINE 1% MDV 20ML VIAL As Ordered ONE; +PROHANCE 279.3MG/ML 5ML VIAL As Ordered ONE
== END ==
LOC: M RAD 06:44
PROVIDERS: ATTEND Physician Assistant Surgical
DX: M16.0 Bilateral primary osteoarthritis of hip (principal); M85.651 Other cyst of bone, right thigh
CPT/HCPCS: 27093; 73723; 76000; A9576

== ENCOUNTER 2023-11-21 13:04 | Outpatient (CLI) | payer OTHER ==
[~2023-11-21] VITALS: Ht 154.9 cm; Wt 94.0 kg
[~2023-11-21 13:04] MED LIST changes: +ALBUTEROL SULFATE 2.5MG/0.5ML INH NEB SOLN INH PRN; -DOCU-153 PO; +EPINEPHrine INJ 1 MG/ML 1ML AMP IM PRN; -ISOVUE-300 61% 100ML VIAL As Ordered ONE; -LIDOCAINE 1% MDV 20ML VIAL As Ordered ONE; -PROHANCE 279.3MG/ML 5ML VIAL As Ordered ONE; +STOO100C30 PO; +diphenhydrAMINE 50MG/ML VIAL IV PRN; +methylPREDNISolone 125MG 2ML VIAL IV PRN
[2023-11-21 13:15] VITALS: BP 182/82; O2SAT 96
[2023-11-21] MEDS: ACETAMINOPHEN TAB 650MG DOSE (2X325MG) PO ONE (13:22)
[2023-11-21] MEDS: FERRIC CARBOXYMALTOSE INJ 750 MG in NS 250 ML (>50kg) IV ONE (13:22)
[2023-11-21] MEDS ORDERED: diphenhydrAMINE 25MG CAP PO ONE (13:30)
[2023-11-21] MEDS ORDERED: NS 1,000 ML IV SCH (13:30)
[2023-11-21 15:00] VITALS: BP 109/62; O2SAT 96
== END 2023-11-21 14:50 ==
LOC: M INFU 13:04
PROVIDERS: ATTEND Student in an Organized Health Care Education/Training Program
DX: D50.9 Iron deficiency anemia, unspecified (principal)
CPT/HCPCS: 96365; J1439

== ENCOUNTER 2023-11-28 13:55 | Outpatient (CLI) | payer OTHER ==
[~2023-11-28] VITALS: Ht 154.9 cm; Wt 93.0 kg
[2023-11-28 13:55] VITALS: BP 148/74; O2SAT 98
[~2023-11-28 13:55] MED LIST changes: +ALBUTEROL SULFATE 2.5MG/0.5ML INH NEB SOLN INH PRN; +EPINEPHrine INJ 1 MG/ML 1ML AMP IM PRN; -TRAZ-186 PO; +diphenhydrAMINE 50MG/ML VIAL IV PRN; +methylPREDNISolone 125MG 2ML VIAL IV PRN
[2023-11-28] MEDS ORDERED: ACETAMINOPHEN 325 MG TAB As Ordered ONE (13:56)
[2023-11-28] MEDS: ACETAMINOPHEN TAB 650MG DOSE (2X325MG) PO ONE (13:58)
[2023-11-28] MEDS: diphenhydrAMINE 25MG CAP PO ONE (13:59)
[2023-11-28] MEDS ORDERED: NS 1,000 ML IV SCH (14:00)
[2023-11-28] MEDS ORDERED: TRAZ-186 PO (14:07)
[2023-11-28] MEDS: FERRIC CARBOXYMALTOSE INJ 750 MG in NS 250 ML (>50kg) IV ONE (14:08)
[2023-11-28 15:20] VITALS: BP 133/65; O2SAT 98
== END 2023-11-28 15:25 | disposition home or self-care (01) ==
LOC: M INFU 13:55
PROVIDERS: ATTEND Student in an Organized Health Care Education/Training Program
DX: D50.9 Iron deficiency anemia, unspecified (principal)
CPT/HCPCS: 77063; 77067; 96365; J1439

== ENCOUNTER → 2023-11-28 | Outpatient (CLI) | payer OTHER ==
[~2023-11-28] MED LIST changes: -ALBUTEROL SULFATE 2.5MG/0.5ML INH NEB SOLN INH PRN; -EPINEPHrine INJ 1 MG/ML 1ML AMP IM PRN; +TRAZ-186 PO; -diphenhydrAMINE 50MG/ML VIAL IV PRN; -methylPREDNISolone 125MG 2ML VIAL IV PRN
== END ==
LOC: M WHC 08:42
PROVIDERS: ATTEND Internal Medicine
DX: Z12.31 Encounter for screening mammogram for malignant neoplasm of breast (principal)

== ENCOUNTER → 2023-11-28 | Outpatient (CLI) | payer OTHER | LOC: M WHC 08:20 | PROVIDERS: ATTEND Nurse Practitioner Family | DX: Z12.31 Encounter for screening mammogram for malignant neoplasm of breast (principal) ==

== ENCOUNTER 2024-06-01 10:14 | Day surgery (SDC) | payer OTHER ==
[~2024-06-01] VITALS: Ht 154.9 cm; Wt 88.5 kg
[~2024-06-01 10:14] MED LIST changes: -ALBUTEROL SULFATE 2.5MG/0.5ML INH NEB SOLN INH PRN; +ATIV1TAB10 PO; +CHOL12508 PO; +DEKA1CHW PO; -EPINEPHrine INJ 1 MG/ML 1ML AMP IM PRN; +FERR325T19 PO; +GABA-1172 PO; +GABA-1490 PO; -GABA-282 PO; -GABA600T4 PO; +NS 250 ML IV ONE; +OLME20TA50 PO; +PROP40TA62 PO; +RIZA10TA58 PO; +TRAZ-186 PO; +VITA500T9 PO; -diphenhydrAMINE 50MG/ML VIAL IV PRN; -methylPREDNISolone 125MG 2ML VIAL IV PRN
[2024-06-01] MEDS ORDERED: LIDOCAINE 2% 100MG/5ML SDV (FOR ANES.) As Ordered ONE (10:43)
[2024-06-01] MEDS ORDERED: propofoL 500 MG/50 ML VIAL As Ordered ONE (10:45)
[2024-06-01 12:35] VITALS: TEMP 97.1
[2024-06-01 12:55] VITALS: BP 143/77; O2SAT 95
== END 2024-06-01 13:15 | disposition home or self-care (01) ==
LOC: M OPP 10:14
PROVIDERS: ATTEND Internal Medicine Gastroenterology
DX: D50.9 Iron deficiency anemia, unspecified (principal); K64.8 Other hemorrhoids; Z98.0 Intestinal bypass and anastomosis status; I10 Essential (primary) hypertension; K58.1 Irritable bowel syndrome with constipation; K21.9 Gastro-esophageal reflux disease without esophagitis; M19.90 Unspecified osteoarthritis, unspecified site; M79.7 Fibromyalgia; F41.9 Anxiety disorder, unspecified; F32.A Depression, unspecified; G43.909 Migraine, unspecified, not intractable, without status migrainosus; F90.9 Attention-deficit hyperactivity disorder, unspecified type; J45.909 Unspecified asthma, uncomplicated; Z79.84 Long term (current) use of oral hypoglycemic drugs; Z79.899 Other long term (current) drug therapy

== ENCOUNTER 2025-01-27 08:00 | Emergency (ER) | payer OTHER ==
[~2025-01-27] VITALS: Ht 154.9 cm; Wt 95.9 kg
[~2025-01-27 08:00] MED LIST changes: -AMBI5TAB PO; -AMBI6.25 PO; -ESSE250T PO; +MAGN250T17 PO; -NS 250 ML IV ONE; +ZOLP-532 PO; +ZOLP6.2544 PO
[2025-01-27] MEDS: MORPHINE 4 MG/ML 1 ML VIAL IV PRN (10:20)
[2025-01-27 14:46] VITALS: BP 123/70; TEMP 97.8; O2SAT 91
== END 2025-01-27 14:47 | disposition short-term general hospital (02) ==
LOC: M ED 08:00 → EDBD 08:00 → M ED 14:47
DX: S82.101A Unspecified fracture of upper end of right tibia, initial encounter for closed fracture (principal); Y92.019 Unspecified place in single-family (private) house as the place of occurrence of the external cause; Y93.9 Activity, unspecified; Y99.9 Unspecified external cause status; W10.8XXA Fall (on) (from) other stairs and steps, initial encounter; I10 Essential (primary) hypertension; E03.9 Hypothyroidism, unspecified; Z79.1 Long term (current) use of non-steroidal anti-inflammatories (NSAID); Z79.51 Long term (current) use of inhaled steroids; Z79.899 Other long term (current) drug therapy; Z79.810 Long term (current) use of selective estrogen receptor modulators (SERMs)

== ENCOUNTER 2025-02-02 13:40 | Inpatient (IN) | payer OTHER ==
[~2025-02-02] VITALS: Ht 167.6 cm; Wt 90.1 kg
[2025-02-02] MEDS ORDERED: MAALOX 30 ML SUSP *UDC PO PRN (14:50)
[2025-02-02] MEDS ORDERED: BISACODYL 5 MG TAB PO PRN (14:50)
[2025-02-02] MEDS ORDERED: MOM 30 ML SUSPENSION UDC PO PRN (14:50)
[2025-02-02] MEDS ORDERED: BISACODYL 10 MG SUPP PR PRN (14:50)
[2025-02-02] MEDS ORDERED: SIMETHICONE 80MG CHEW TAB PO PRN (14:50)
[2025-02-02] MEDS ORDERED: RIZATRIPTAN MLT 10 MG TAB PO PRN (15:15)
[2025-02-02] MEDS ORDERED: RAMELTEON 8 MG TAB PO PRN (15:15)
[2025-02-02] MEDS ORDERED: ALBUTEROL 90 MCG/ACT 8 GM HFA INHALER INH PRN (15:15)
[2025-02-02 18:30] VITALS: BP 131/61; TEMP 97.5; O2SAT 98
[2025-02-02 19:28] VITALS: BP 110/54; TEMP 98.2; O2SAT 94
[2025-02-02] MEDS ORDERED: ALBU8.5H INH (19:36)
[2025-02-02] MEDS ORDERED: HOME MED LIST COMPLETE! XX SCH (19:40)
[2025-02-02] MEDS ORDERED: DOCU100C16 PO (20:20)
[2025-02-02] MEDS ORDERED: OXYC-517 PO (20:20)
[2025-02-02] MEDS ORDERED: METH-1164 PO (20:20)
[2025-02-02] MEDS ORDERED: BISA10SU PR (20:20)
[2025-02-02] MEDS: SENNOSIDES/DOCUSATE SODIUM 8.6 MG/50MG TAB PO SCH (20:45)
[2025-02-02] MEDS: GABAPENTIN 300 MG CAP PO SCH (20:46)
[2025-02-02] MEDS: traZODone 50 MG TAB PO SCH (20:46)
[2025-02-02] MEDS: CETIRIZINE 10 MG TAB PO SCH (20:46)
[2025-02-02] MEDS: ACETAMINOPHEN 500 MG TAB PO SCH (20:48)
[2025-02-02] MEDS: PROPRANOLOL 20 MG TAB PO SCH (21:00)
[2025-02-02] MEDS: TELMISARTAN 20 MG TAB PO SCH (21:00)
[2025-02-02] MEDS: ADVAIR HFA 230/21 MCG INHALER INH SCH (21:16)
[2025-02-03 03:33] VITALS: BP 104/51; TEMP 97.6; O2SAT 91
[2025-02-03 06:00] LABS: BASO # 0.1 10^3/uL (0.0-0.2); BASO % 0.8 % (0.0-1.0); EOS # 0.3 10^3/uL (0.0-0.5); EOS % 3.4 % (0.0-3.0); LYMPH # 2.6 10^3/uL (1.5-5.0); LYMPH % 26.8 % (24.0-44.0); MONO # 1.2 10^3/uL (0.0-0.8); MONO % 12.5 % (2.0-8.0); NEUTROPHILS # 5.3 10^3/uL (1.5-8.5); NEUTROPHILS % 54.4 % (36.0-66.0); PLATELET COUNT, AUTOMATED 433 10^3/uL (150-450)
[2025-02-03] MEDS: LORazepam 0.5 MG TAB PO PRN (06:18)
[2025-02-03 06:35] LABS: ALT/SGPT 44 U/L (7.0-40); AST/SGOT 41 U/L (<34); CALCIUM LEVEL 8.7 MG/DL (8.5-10.1); CARBON DIOXIDE LEVEL 31 MMOL/L (20-31); CHLORIDE LEVEL 101 MMOL/L (98-107); CREATININE FOR GFR 0.76 MG/DL (0.55-1.30); GLOMERULAR FILTRATION RATE > 90.0 (>51); POTASSIUM SERUM 4.6 MMOL/L (3.5-5.1); SODIUM LEVEL 139 MMOL/L (136-145)
[2025-02-03] MEDS: UNRESOLVED PATIENT OWN MED ORDER XX SCH (09:00)
[2025-02-03] MEDS: MIRALAX *UNIT DOSE* 17 GM PACKET PO SCH (09:00)
[2025-02-03] MEDS ORDERED: TRULANCE 3 MG PO SCH (09:00)
[2025-02-03] MEDS: METHYLPHENIDATE ER 18 MG TABLET PO SCH (10:02)
[2025-02-03] MEDS: oxyBUTYnin *XL* 5 MG TAB PO SCH (10:02)
[2025-02-03] MEDS: lamoTRIgine 100 MG TAB PO SCH (10:05)
[2025-02-03] MEDS: VITAMIN D 1,000 INTERNATIONAL UNITS TABLET PO SCH (10:05)
[2025-02-03] MEDS: OMEPRAZOLE 20MG CAP PO SCH (10:05)
[2025-02-03] MEDS: ENOXAPARIN 40 MG/0.4 ML SYRINGE (J1650 PER 10MG) SC SCH (10:05)
[2025-02-03 12:00] VITALS: BP 120/70; TEMP 97; O2SAT 99
[2025-02-03 12:19] LABS: HCG, SERUM QUANTITATIVE 5.6 MIU/ML (<4.2)
[2025-02-03 12:39] LABS: HCG, SERUM QUALITATIVE NEGATIVE (NEGATIVE)
[2025-02-03] MEDS: BISACODYL 5 MG TAB PO SCH (13:51)
[2025-02-03 20:00] VITALS: BP 143/60; TEMP 98; O2SAT 99
[2025-02-03] MEDS: DOCUSATE SODIUM 100 MG CAPSULE PO SCH (20:42)
[2025-02-03] MEDS: SENNA 8.6 MG TAB PO SCH (21:00)
[2025-02-04 04:00] VITALS: BP 101/51; TEMP 97; O2SAT 93
[2025-02-04 11:39] VITALS: BP 105/54; TEMP 97.6; O2SAT 93
[2025-02-04] MEDS: BISACODYL 5 MG TAB PO ONE (12:55)
[2025-02-04 20:00] VITALS: BP 141/66; TEMP 97.4; O2SAT 100
[2025-02-04] MEDS: SENNOSIDES/DOCUSATE SODIUM 8.6 MG/50MG TAB PO SCH (20:40)
[2025-02-05 04:00] VITALS: BP 117/59; TEMP 97; O2SAT 96
[2025-02-05] MEDS: BISACODYL 5 MG TAB PO SCH (08:59)
[2025-02-05 09:26] LABS: PLATELET COUNT, AUTOMATED 615 10^3/uL (150-450)
[2025-02-05 12:30] VITALS: BP 144/69; TEMP 97; O2SAT 93
[2025-02-05 20:00] VITALS: BP 114/61; TEMP 97.3; O2SAT 97
[2025-02-06 04:00] VITALS: BP 102/53; TEMP 97.5; O2SAT 98
[2025-02-06 12:00] VITALS: BP 117/56; TEMP 97.3; O2SAT 97
[2025-02-06 19:27] VITALS: BP 117/56; TEMP 97.9; O2SAT 99
[2025-02-07 03:33] VITALS: BP 117/58; TEMP 97.9; O2SAT 98
[2025-02-07 12:00] VITALS: BP 113/53; TEMP 97.8; O2SAT 95
[2025-02-07 20:00] VITALS: BP 131/58; TEMP 98; O2SAT 98
[2025-02-08 04:00] VITALS: BP 127/60; TEMP 97; O2SAT 96
[2025-02-08 06:44] LABS: PLATELET COUNT, AUTOMATED 624 10^3/uL (150-450)
[2025-02-08 11:44] VITALS: BP 127/59; TEMP 97.8; O2SAT 99
[2025-02-08 20:00] VITALS: BP 112/56; TEMP 97; O2SAT 95
[2025-02-09 04:00] VITALS: BP 116/57; TEMP 98.1; O2SAT 98
[2025-02-09 12:00] VITALS: BP 144/67; TEMP 97.7; O2SAT 97
[2025-02-09] MEDS ORDERED: VITAD1000T PO (15:02)
[2025-02-09] MEDS ORDERED: TRAZ-252 PO (15:02)
[2025-02-09] MEDS ORDERED: ACET-683 PO (15:02)
[2025-02-09] MEDS ORDERED: OXYC10TA12 PO (15:02)
[2025-02-09] MEDS ORDERED: METH-1164 PO (15:02)
[2025-02-09] MEDS ORDERED: BISAC5TA PO (15:02)
[2025-02-09] MEDS ORDERED: PROP40TA62 PO (15:02)
[2025-02-09] MEDS ORDERED: OMEP1CAP73 PO (15:02)
[2025-02-09 20:00] VITALS: BP 109/56; TEMP 97; O2SAT 95
[2025-02-10 04:00] VITALS: BP 100/49; TEMP 97.2; O2SAT 96
[2025-02-10 08:23] VITALS: BP 100/52
[2025-02-10 11:56] VITALS: BP 135/63; TEMP 97.9; O2SAT 100
[2025-02-10] MEDS: ONDANSETRON 4MG ORAL DISINTEGRATING TAB SL PRN (13:06)
== END 2025-02-10 15:45 | disposition home or self-care (01) | DRG 561 ==
LOC: M PM&R 18:20
PROVIDERS: ADMIT Physical Medicine & Rehabilitation; ATTEND Physical Medicine & Rehabilitation
DX: S82.144D Nondisplaced bicondylar fracture of right tibia, subsequent encounter for closed fracture with routine healing (principal); I10 Essential (primary) hypertension; M79.7 Fibromyalgia; G40.909 Epilepsy, unspecified, not intractable, without status epilepticus; Z74.1 Need for assistance with personal care; Z74.09 Other reduced mobility; K59.00 Constipation, unspecified; G43.909 Migraine, unspecified, not intractable, without status migrainosus; N32.81 Overactive bladder; G47.00 Insomnia, unspecified; F90.9 Attention-deficit hyperactivity disorder, unspecified type; J45.909 Unspecified asthma, uncomplicated; K58.9 Irritable bowel syndrome, unspecified; Z79.899 Other long term (current) drug therapy; F32.A Depression, unspecified; Z90.49 Acquired absence of other specified parts of digestive tract; Z98.84 Bariatric surgery status